=== PATIENT | female | born 1990 | race Caucasian/White ===

== ENCOUNTER 2018-06-08 13:02 | Emergency (ER) | payer BC ==
[~2018-06-08] VITALS: Ht 170.2 cm; Wt 94.6 kg
[~2018-06-08 13:02] MED LIST: FLOMAX 0.40.4 MG/CAP PO; MIRENA52 MG IU; NO HOME MEDICATIONS; PERCOCET 325 MG1 TA2 PO; ZOFRAN 4MG T4 MG/TAB PO
[2018-06-08 13:19] VITALS: BP 123/68; TEMP 98.1
[2018-06-08 14:48] LABS: BASO % 0.3 % (0.0-2.0); EOS # 0.1 (0.0-0.7); EOS % 0.8 % (0-4.0); GRAN # 7.8 (1.4-6.5); HEMOGLOBIN 10.9 g/dl (12.5-16.0); LYMPH # 2.2 (1.2-3.4); LYMPH % 20.9 % (20.0-51.0); MEAN CELL VOLUME 86 fl (80.0-100.0); MEAN CORPUSCULAR HEMOGLOBIN 28 pg (27.0-31.0); MEAN CORPUSCULAR HGB CONC 33 g/dl (33.0-37.0); MEAN PLATELET VOLUME 10.3 fl (7.4-10.4); MONO # 0.4 (0.1-0.6); MONO % 4.1 % (1.7-9.3); PLATELET COUNT 252 K/mm3 (130-400); RED BLOOD COUNT 3.85 M/mm3 (4.10-5.30); REDCELL DISTRIBUTION WIDTH-CV 13.3 % (11.5-14.5)
[2018-06-08 15:00] LABS: ALBUMIN 3.6 gm/dL (3.5-5.0); BILIRUBIN,TOTAL 0.2 mg/dL (0.0-1.0); CALCIUM 9.3 mg/dL (8.4-10.2); CREATININE, serum 0.4 mg/dL (0.52-1.25); POTASSIUM 3.9 mmol/L (3.4-5.0); TOTAL PROTEIN 6.5 gm/dL (6.4-8.2)
[2018-06-08 15:55] VITALS: PULSE 76
== END 2018-06-08 15:55 | disposition home or self-care (01) ==
LOC: COL.ER 13:02
PROVIDERS: Family Medicine
DX: R20.2 Paresthesia of skin (principal); R60.9 Edema, unspecified; R00.2 Palpitations

== ENCOUNTER 2018-09-06 06:43 | Inpatient (IN) | payer BC ==
[2018-09-06] VITALS (40 sets, daily range): BP systolic 90–139; BP diastolic 50–74; PULSE 63–109; TEMP 97.6–98.4
[~2018-09-06] VITALS: Ht 170.2 cm; Wt 104.5 kg
--- NOTE | 2018-09-06 07:00 | NUR ---
Patient ambulatory to unit accompanied by spouse for scheduled pitocin induction of labor. Patient in gown and resting in bed. FHR and contraction monitors placed and explained. VS stable. Patient denies any leaking of fluid or vaginal bleeding and states baby has been active. Assessment completed. Consents signed. IV started in left hand, labs collected from IV site and LR infusing without difficulty. Call light explained and patient resting. Patient states she has a hx of PSVT and was taking a beta juanjose but has not taken it for a few weeks. Patient also has GERD with but has not taken her Nexium for a few weeks. Hx of depression and takes Wellbutrin daily and took it yesterday afternoon. Plan of care for induction reviewed with her and . Questions answered.
[2018-09-06] MEDS ORDERED: WELLBUTRIN XL300 M1 PO (07:26)
[2018-09-06] MEDS ORDERED: TOPROL XL 25MG25 MG PO (07:27)
[2018-09-06] MEDS ORDERED: CONCEPT DHA1 CAP PO (07:28)
[2018-09-06] MEDS ORDERED: NEXIUM 20MG20 MG PO (07:28)
--- NOTE | 2018-09-06 07:35 | NUR ---
0735: Pitocin started at 2mu/min.
--- NOTE | 2018-09-06 08:07 | NUR ---
0805: Dr. Barrett at nurses station and FHR and contraction pattern reviewed. In room at bedside and plan of care reviewed. 0807: AROM with moderate amount of clear fluid noted, SVE 2/70/-2. FHR acceleration noted after AROM. Pericare provided and patient tolerates well.
[2018-09-06 08:10] LABS: BASO % 0.3 % (0.0-2.0); EOS # 0.1 (0.0-0.7); GRAN # 7.1 (1.4-6.5); GRAN % 70.5 % (42.2-75.2); HEMATOCRIT 35.4 % (37.0-47.0); HEMOGLOBIN 11.4 g/dl (12.5-16.0); LYMPH # 2.1 (1.2-3.4); LYMPH % 20.9 % (20.0-51.0); MEAN CELL VOLUME 81 fl (80.0-100.0); MEAN CORPUSCULAR HEMOGLOBIN 26 pg (27.0-31.0); MEAN CORPUSCULAR HGB CONC 32 g/dl (33.0-37.0); MEAN PLATELET VOLUME 11.1 fl (7.4-10.4); MONO # 0.6 (0.1-0.6); MONO % 6.1 % (1.7-9.3); PLATELET COUNT 239 K/mm3 (130-400); RED BLOOD COUNT 4.38 M/mm3 (4.10-5.30); REDCELL DISTRIBUTION WIDTH-CV 13.9 % (11.5-14.5)
--- NOTE | 2018-09-06 08:35 | NUR ---
Patient off monitors and up to bathroom to void. 0840: Patient requesting epidural. While Dr. Barrett at bedside gives verbal order to let patient have epidural when desires. Trae Tran CRNA called to hospital for patient request.
--- NOTE | 2018-09-06 09:20 | NUR ---
0920: Patient off monitors and up to bathroom. Back to bed and sitting up at side of bed for epidural placement. Trae Tran CRNA in room and health hx reviewed with patient. Epidural time out completed. While patient sitting up at side of bed for epidural placement difficult to trace FHR. Monitor being adjusted. 0932: Single shot given. No reaction to single shot. 0933: Epidural catheter placed. Patient tolerates well. Epidural catheter secured to patients back. Patient repositioned and resting wedged left at 0938. See anesthesia records.
--- NOTE | 2018-09-06 12:11 | NUR ---
1211: Patient feeling itching on back around epidural site. No redness or hives noted. Patient given benadryl P.O.
--- NOTE | 2018-09-06 12:50 | NUR ---
Patient calls out and states she is feeling more vaginal pressure during contractions. SVE 7/100/0. Patient repositioned and instructed to call out if the pressure becomes more intense.
--- NOTE | 2018-09-06 14:05 | NUR ---
1405: SVE /+1. Dr. Barrett called to hospital for delivery.
--- NOTE | 2018-09-06 14:20 | NUR ---
1420: Dr. Barrett in room for delivery. 1427: Patient begins pushing with contractions. 1428: Spontaneous vaginal delivery of infant head, immediately followed by infant body with final time of 1428. Infant nose and mouth suctioned by Dr. Barrett. Pitocin off. 1434: Spontaneous and intact delivery of placenta. Pitocin restarted at 333ml/hr. Fundus massaged, down 1 from umbilicus. Moderate free flow noted. Verbal order from Dr. Barrett to give methergine IM. 1435: Patient bladder emptied by Dr. Barrett using red rich. 1438: Methergine IM given in left thigh. Fundus massaged and firming with massage. Small amount of free flow noted. Ice pack to perineum. Perineum intact. See labor and delivery summary, doctor dictation and anesthesia records.
--- NOTE | 2018-09-06 16:00 | NUR ---
Urine expressed during fundal massage. Patients bladder drained using straight catheter with only 100ml clear yellow urine returning.
--- NOTE | 2018-09-06 17:40 | NUR ---
IV to INT. Patient ambulates to bathroom. Able to void. Pericare provided and underwear and pad on. New gown on. Patient to room 215 and oriented to room and call light. Resting in bed, holding infant.
[2018-09-07 01:30] VITALS: BP 116/60; PULSE 81; TEMP 98
[2018-09-07 05:25] VITALS: BP 95/47; PULSE 73; TEMP 98.3
[2018-09-07 07:30] VITALS: BP 107/65; PULSE 73; TEMP 97.8
[2018-09-07] MEDS ORDERED: MOTRIN 800800 MG/TAB PO (07:44)
--- NOTE | 2018-09-07 12:51 | NUR ---
Initial visit; Patient thanked [employer] for offering congratulations and God's blessings for the of her son. [employer] thanked Mom for choosing [facility].
== END 2018-09-07 17:50 | disposition home or self-care (01) | DRG 807 ==
LOC: LDR 06:43 → OB 17:45
PROVIDERS: ADMIT Obstetrics & Gynecology
PROC: 10E0XZZ Delivery of Products of Conception, External Approach (ICD-10-PCS; principal; 2018-09-06)
PROC: 10907ZC Drainage of Amniotic Fluid, Therapeutic from Products of Conception, Via Natural or Artificial Opening (ICD-10-PCS; 2018-09-06)
PROC: 3E033VJ Introduction of Other Hormone into Peripheral Vein, Percutaneous Approach (ICD-10-PCS; 2018-09-06)
DX: O99.344 Other mental disorders complicating childbirth (principal); Z37.0 Single live birth; Z3A.39 39 weeks gestation of pregnancy; F32.9 Major depressive disorder, single episode, unspecified
CPT/HCPCS: J2210; J2590; J2795; J7120